=== PATIENT | male | born 1990 | race Caucasian/White ===

== ENCOUNTER 2020-04-17 23:58 | Emergency (ER) | payer OTHER ==
[~2020-04-17] VITALS: Ht 172.7 cm; Wt 70.5 kg
[2020-04-18 00:03] VITALS: TEMP 97.9
[2020-04-18 02:50] VITALS: BP 98/60; PULSE 62
== END 2020-04-18 02:50 | disposition home or self-care (01) ==
LOC: COL.ER 23:58
DX: F10.129 Alcohol abuse with intoxication, unspecified (principal)
CPT/HCPCS: J2765; J7120